=== PATIENT | male | born 1960 | race Caucasian/White ===

== ENCOUNTER 2019-05-26 17:11 | Outpatient (RCR) | payer BC, SELFPAY ==
--- NOTE | 2019-05-26 17:46 | PTOPEVAL ---
Thank you for referring this patient to [facility]. Please review, sign, date and return this plan of care SARY. I agree with and certify that the following plan of care is medically necessary. Referring Physician Date Admitting Provider: Attending Provider: PHYSICIAN NOT ON STAFF Referring Provider: *PT Outpatient Evaluation Start: 05/26/19 17:10 Freq: Status: Active Protocol: Document 05/26/19 17:12 ISABEL (Rec: 05/26/19 17:42 [email or web address] [id number]) Therapy Assessment Status Assessment Status Assessment Status Evaluation Evaluation Information Problem Diagnosis right knee medial menisectomy Onset 05/18/19 Subjective Information Pt. reports that he underwent Query Text:As Reported By Patient/ surgery last week to remove Family torn meniscus. He reports he has had no restriction since surgery. He reports that he has increased pain and states that he has been back to work since 05/23/19. He reports most pain is located in the area of the right thigh. He notes that he cannot perform steps without increased pain. He reports most difficulty with bending his leg. He is able to sit most of the day at work. Prior Level of Function Activity Level (Last 3 Months) Hand Dominance Right Activity of Daily Living Ability Independent Indoor/Home Mobility Independent Community Mobility Independent Stairs Ability Independent Functional Cognition (Planning, Shopping Independent , Taking Medications) Cooking Yes Cleaning Yes Laundry Yes Shopping Yes Driving Yes Pain Assessment Pain Scale Pain Scale Used Numeric (1 - 10) Self Report Pain Assessment Right Thigh(s) Reported Pain Level 9 Pain Description Aching,Burning Pain Frequency Continuous Pain Aggravating Factors Bending,Stair Climbing Pain Relief Interventions Used By Medication Patient Pain Score Pain Score 9: Self Report Lower Extremity Range of Motion General Lower Extremity Range of Motion Gross Lower Extremity Range of Motion Pt. presents with 3-80 degrees Comments right knee AROM and 0-135 degrees l
== END 2019-06-27 08:38 | disposition home or self-care (01) ==
LOC: CHSPT 17:11
DX: Z48.89 Encounter for other specified surgical aftercare (principal); S83.241A Other tear of medial meniscus, current injury, right knee, initial encounter
CPT/HCPCS: 97016; 97110; 97161

== ENCOUNTER 2020-12-16 10:12 | Outpatient (CLI) | payer BC, SELFPAY ==
--- NOTE | 2020-12-16 10:30 | ECG_ITS ---
Measurements Intervals [place] Rate: 79 P: 22 FL: 180 QRS: -19 QRSD: 96 T: 18 QT: 370 QTc: 425 Interpretive Statements SINUS RHYTHM VOLTAGE CRITERIA FOR LVH BORDERLINE R WAVE PROGRESSION, ANTERIOR LEADS BORDERLINE ECG Electronically Signed On 12-16-2020 11:04:52 CDT by Luis Alberto Devries D.O.
== END 2020-12-16 10:13 | disposition home or self-care (01) ==
PROVIDERS: PCP Internal Medicine; Visit Provider Urology
DX: I10 Essential (primary) hypertension (principal); Z01.818 Encounter for other preprocedural examination; R94.31 Abnormal electrocardiogram [ECG] [EKG]
CPT/HCPCS: 93005

== ENCOUNTER 2020-12-17 03:26 | Day surgery (SDC) | payer BC, SELFPAY ==
[2020-12-13 18:14] VITALS: BMI 29.2
[2020-12-17] VITALS (8 sets, daily range): BP systolic 143–180; BP diastolic 78–96; PULSE 61–84; RESP 10–19; TEMP 36.2; O2SAT 95–100
[2020-12-17] MEDS: LACTATED RINGERS 1,000 ML 30 ML IV CONT ×2 (07:09→10:10)
--- NOTE | 2020-12-17 07:12 | WPDHPUPDATE1 ---
History and Physical Update Update Date/Time: 12/17/20 07:12 History and Physical has been reviewed, including an updated exam of the patient. There are NO changes in the patient's condition. Risks, benefits, and alternatives have been discussed and questions answered. Patient agrees to proceed with procedure. Proceed with bilateral hydrocelectomy
--- NOTE | 2020-12-17 08:03 | WPDANESEPPF ---
Anes - Initial Pre Proc Eval Procedure: Operation Date: 12/17/20 08:30 Proposed Procedures p Bilateral Hydrocelectomy - Rudy Pelayo MD Date/Time: 12/17/20 08:03 Surgeon: uRdy Pelayo MD Pre Op Diagnosis: hydrocele Patient Data Age: 60 Gender: M Height: 1.74 m Weight: 90.6 kg Last Vital Signs Temp 36.2 C L 12/17/20 07:00 Pulse 73 12/17/20 07:00 Resp 18 12/17/20 07:00 BP 145/96 H 12/17/20 07:00 Pulse Ox 98 12/17/20 07:00 Allergies Allergy/AdvReac Type Severity Reaction Status Date / Time No Known Allergies Allergy Verified 12/17/20 07:32 Home Medications Medication Instructions Recorded Confirmed Type aspirin 81 mg PO DAILY 12/13/20 12/17/20 History omega-3 fatty acids-vitamin E 1 cap PO DAILY 12/13/20 12/17/20 History [Fish Oil] omeprazole magnesium [Prilosec OTC] 20 mg PO DAILY 12/13/20 12/17/20 History verapamil 240 mg PO DAILY 12/13/20 12/17/20 History Patient hx anesthesia problems: none Family hx anesthesia problems: none PMFSH Past Medical History Medical History (Updated 12/17/20 @ 08:03 by Srinath Caal MD) GERD (gastroesophageal reflux disease) HTN (hypertension) Overweight Family History Family History Father Hypertension Family history of diabetes mellitus in first degree relative Other Cerebrovascular accident Family history of cardiovascular disease Social History Social History Smoking packs per day: 1 Smoking cigarettes per day: 20.0 Years smoked: 10 Smoking pack-years: 10.00 Smoking status: Former smoker Tobacco type: cigarettes and cigars Second hand tobacco smoke exposure: No Smoking end date: 05/03/89 Additional smoking assessment comments: currently smokes cigars on the weekends Alcohol intake: current Drinks per week: 2 Alcohol use details: beer Substance use: never Substance use type: does not use Living arrangements: with family Spiritual care concerns: No Anes - Eval Final PreProcedure Day of Procedure 12/17/20 08:03 Patient weight: overweight Heart: regular rate and rhythm Lungs: clear to auscultation Airway: Mallampati scale class II Neurological: alert and oriented Last oral intake: >/= 8 hours ASA classification: II Emergent: no Anesthetic plan: proceed Anesthesia type and monitoring: general LMA and standard monitoring Informed Consent: The patient's anesthetic plan and its attendant risks and benefits were discussed with the patient/family/POA. Questions were solicited and answers provided to the satisfaction of the patient/family/POA.
[2020-12-17] MEDS: ceFAZolin 2 GM/D5W 50 ML 2 GM/50 ML BAG IVPB (08:21)
[2020-12-17] MEDS: NEOMYCIN/POLYMYXIN/BACITRACIN OINTMENT 15 GM TUBE 1 APPLIC TOPICAL (10:01)
--- NOTE | 2020-12-17 10:07 | P.OP_ITS ---
Procedure Note - Detailed Date of Procedure 12/17/20 Pre-op Diagnosis hydrocele, bilateral Post-op Diagnosis same Procedure Performed Bilateral hydrocelectomy with bilateral orchiopexy Surgeon Rudy Pelayo MD Anesthesia general Description of Procedure Patient is taken to the operative suite correctly identified. Once anesthesia was obtained was prepped draped usual sterile fashion. A midline incision was made in the scrotum carried down to the tunical area. The right hydrocele was brought out into the operative field. This was dissected nicely. It was opened and drained of approximately 250 cc of straw-colored fluid. The hydrocele tissue was then excised the edges were fulgurated. The appendix testis was fulgurated. We then placed a quarter-inch Baltazar drain in the right hemiscrotum. A right orchiopexy was performed with placement of 3-0 Ethibond on the right foot lateral , medial and inferior aspect of the testicle to secured in the right hemiscrotum. We then entered the left hemiscrotum by incising the tunica. Patient had a prior operative procedure possibly a hydrocele. He had quite a bit of scarring and adhering of the tunica to the left anterior and lateral wall. We were able to dissect this out. The hydrocele was then brought in the operative field. We incised and drained it of another 220 cc of straw- colored fluid. We excised the excess tissue and fulgurated the edges. We then placed another quarter-inch Baudette drain in the left hemiscrotum and also did a left orchiopexy using 3-0 Ethibond. The tunica was then closed using 3-0 chromic in a running fashion. Skin was closed using 3-0 chromic in a running fashion. Baltazar drains were secured using 3-0 chromic. We anesthetized incision with 1% lidocaine. Patient tolerated procedure well without any complications taken recovery stable condition. He will remove the Baltazar drains in approximately 2-3 days if there is minimal drainage. He will follow- up in 2-3 weeks time. Drains Yes Packing No Pathology yes Complications No immediate complications Condition stable Disposition PACU
[2020-12-17] MEDS: fentaNYL CITRATE INJ (*CRX) 100 MCG/2 ML VIAL 25 MCG IV PUSH ×6 (10:33→11:00)
[2020-12-17] MEDS: oxyCODONE HCL (*CRX) 5 MG TAB IR PO (11:41)
== END 2020-12-17 12:10 | disposition home or self-care (01) ==
PROVIDERS: PCP Internal Medicine; Visit Provider Urology
PROC: (CPT 55040; principal; 2020-12-17 08:30)
DX: N43.3 Hydrocele, unspecified (principal); I10 Essential (primary) hypertension; K21.9 Gastro-esophageal reflux disease without esophagitis; Z79.82 Long term (current) use of aspirin; Z72.0 Tobacco use
CPT/HCPCS: 55041; 54640; 88302; A9270; J0690; J1100; J2405; J2704; J3010; J7120

== ENCOUNTER 2021-02-26 13:58 | Outpatient (CLI) | payer BC, SELFPAY ==
--- NOTE | ~2021-02-26 | CT_ITS ---
EXAMINATION: CT abdomen pelvis wo con DATE: 02/26/2021 14:19 INDICATION: Right flank pain. Hematuria. TECHNIQUE: Computed tomography (CT) of the abdomen and pelvis was performed without intravenous contr ast. Automated exposure control and iterative reconstruction technique were employed. The dose-length product was 1155.57 mGy-cm. COMPARISON: CT abdomen and pelvis 04/30/2018 FINDINGS: The visualized portions of the lung bases are clear without pneumonia or pleural effusion. The heart size is normal. No pericardial effusion. There are cysts in the liver measuring up to 9 mm. The gallbladder, spleen, pancreas, and adrenal glands are normal. There is a 4 mm stone in right kid luis. There are 5 stones in left kidney measuring up to 3 mm. There is a 9 mm cyst in left kidney. The re is a left-sided hydrocele. The prostate is mildly enlarged. There are no dilated loops of bowel. T he appendix is not visualized. There are no pathologically enlarged lymph nodes. There is no free int raperitoneal fluid. There is prominent fat in left inguinal canal that may be a hernia. There is mild thoracolumbar spondylosis. IMPRESSION: 1. Bilateral nonobstructing kidney stones. 2. Left-sided hydrocele. Reviewed, dictated and finalized at location A.
== END 2021-02-26 13:59 | disposition home or self-care (01) ==
LOC: ANHIMG 14:00
PROVIDERS: PCP Internal Medicine; Visit Provider Internal Medicine
DX: R31.9 Hematuria, unspecified (principal); N20.0 Calculus of kidney; N43.3 Hydrocele, unspecified
CPT/HCPCS: 74176

== ENCOUNTER 2023-04-09 08:56 | Outpatient (CLI) | payer BC, SELFPAY ==
--- NOTE | ~2023-04-09 | CT_ITS ---
EXAMINATION: CTA brain, CT brain w con DATE: 04/09/2023 10:48 [employer]ODUCTION MANAGER INDICATION: Worsening headache TECHNIQUE: Computed tomographic angiography (CTA) of the head was performed without and with 100 mL O mnipaque-350 intravenous contrast. The dose-length product was 1758.67 (accession [id number]), 60 5.33 (accession [id number]) mGy-cm. Volume-rendered and maximum intensity projection 3D reconstru ctions of the intracranial arteries were created by the technologist on a separate workstation. Autom ated exposure control and iterative reconstruction technique were employed. COMPARISON: CTA brain dated 04/28/2017 FINDINGS: Brain parenchymal volume is normal for age. Normal parra-white differentiation. No ventricul omegaly or midline shift. Prominent perivascular space in the right basal ganglia. No acute infarctio n, hemorrhage, mass or mass effect. There is mucosal thickening of the maxillary sinuses. No depresse d skull fractures. Mastoids are pneumatized. Vertebral arteries are codominant. Basilar artery is unremarkable. Right posterior cerebral artery is unremarkable. The patient he 1 segment of the left posterior cerebral artery is either hypoplastic o r absent with enlargement of the hips lateral posterior communicating artery leading to type le ft posterior cerebral artery. No significant stenosis or, aneurysm or occlusion in the anterior poste rior cerebral arteries. The included in segments of the internal carotid artery are normal. No vascul ar malformations are identified.. IMPRESSION: 1. No acute intracranial abnormality. No significant intracranial vascular abnormality. Reviewed, dictated and finalized at location B. ERY PRODUCTION MANAGER IMPRESSION: 1. No acute intracranial abnormality. No significant intracranial vascular abno rmality.
[2023-04-09 09:45] LABS: Estimated Glomerular Filt Rate > 60
== END 2023-04-09 08:57 | disposition home or self-care (01) ==
LOC: CHSIMG 08:59
PROVIDERS: PCP Internal Medicine; Visit Provider Internal Medicine
DX: R51.9 Headache, unspecified (principal)
CPT/HCPCS: 70460; 70496; Q9967